=== PATIENT | male | born 1960 | race African-American/Black ===

== ENCOUNTER 2018-04-26 10:06 | Outpatient (CLI) | payer MEDICARE, MEDICAID ==
--- NOTE | 2018-04-26 11:35 | CT ---
CT OF THE CHEST WITHOUT CONTRAST: History: 30 pack-year smoking history. Patient quit smoking one year ago. Lung cancer screening. Technique: Multiple contiguous axial images were obtained in a CT of the chest without contrast. Low dose cancer screening protocol. Coronal reformats were performed. FINDINGS: No suspicious pulmonary nodules are identified. There is a calcified granuloma in the right upper lob e. No infiltrates are seen. No pneumothorax or pleural effusion are seen. The heart is normal in size without focal cardiac abnormality. Calcifications are seen in the coronar y arteries and aorta. No hilar or mediastinal lymph adenopathy are appreciated on this limited noncon trast CT examination. There are calcified right hilar lymph nodes. IMPRESSION: Lung rads category 2 - benign findings. POS: JULISA
== END 2018-04-26 10:07 | disposition home or self-care (01) ==
LOC: CT 10:06
PROVIDERS: ATTEND Family Medicine
DX: Z87.891 Personal history of nicotine dependence (principal)
CPT/HCPCS: G0297

== ENCOUNTER 2019-01-24 09:57 | Day surgery (SDC) | payer MEDICARE, MEDICAID ==
[2019-01-23 08:37] VITALS: BMI 28.6
[2019-01-24] MEDS ORDERED: Lidocaine 1% w/Epinephrine 1:100K 20 ML VIAL ONE (10:07)
[2019-01-24] MEDS ORDERED: Oxymetazoline HCl 0.05% ( 15 ML ) ONE (10:32)
[2019-01-24] MEDS ORDERED: Bacitracin Zinc Ointment 30 gm TUBE ONE (11:07)
[2019-01-24] MEDS ORDERED: EPINEPHrine 1 MG/ML AMP ONE (11:08)
[2019-01-24] MEDS ORDERED: Sodium Chloride 0.9% 0 ML ONE (11:08)
[2019-01-24] MEDS ORDERED: Fentanyl 100 MCG/2 ML VIAL ONE ×3 (11:15→12:14)
[2019-01-24] MEDS ORDERED: Glycopyrrolate 0.2 MG/ML 5 ML SYRINGE ONE (12:20)
[2019-01-24] MEDS ORDERED: Ondansetron PF 4 MG/2 ML Vial ONE (12:20)
[2019-01-24] MEDS ORDERED: Dexamethasone 20 MG/5 ML VIAL ONE (12:20)
[2019-01-24] MEDS ORDERED: Lidocaine 1% PF 5 ML VIAL ONE (12:20)
[2019-01-24] MEDS ORDERED: PHENYLEPHRINE-NS 100 MCG/ML 10 ML SYRINGE ONE (12:20)
[2019-01-24] MEDS ORDERED: ePHEDrine 50 MG/ML VIAL ONE (12:20)
[2019-01-24] MEDS ORDERED: PROPOFOL 200 MG/20 ML VIAL ONE (12:20)
[2019-01-24] MEDS ORDERED: Rocuronium Bromide 10 MG/ML (10ML VIAL) ONE (12:20)
[2019-01-24] MEDS ORDERED: Morphine 4 MG/ML VIAL ONE (12:24)
[2019-01-24] MEDS ORDERED: HYDROcodone/Acetaminophen 5/325 mg Tablet ONE (13:08)
[2019-01-24] MEDS ORDERED: hydrALAZINE 20 MG/ML VIAL ONE (14:55)
[2019-01-24] MEDS ORDERED: Morphine 2 MG/ML SYRINGE ONE (15:08)
--- NOTE | 2019-01-24 15:54 | OP ---
DATE OF PROCEDURE: 01/24/2019 PREOPERATIVE DIAGNOSES: 1. Profound septal deformity. 2. Hypertrophic inferior turbinates. POSTOPERATIVE DIAGNOSES: 1. Profound septal deformity. 2. Hypertrophic inferior turbinates. PROCEDURES PERFORMED: 1. Septoplasty. 2. Bilateral nasal endoscopy with submucosal resection of inferior turbinates. PROCEDURE IN DETAIL: SEPTOPLASTY: After local anesthesia was infiltrated into the submucoperichondrial plane, a standard Mccloud incision was made with a #15 blade down to the level of the septal cartilage. The caudal elevator was used to elevate the mucoperichondrium from the underlying cartilage. We then proceeded beyond the bony cartilaginous junction and elevated the bony periosteum as well. Great attention was paid to the spur to prevent rent formation in the septal flap. A transcartilaginous incision was then made, while preserving an adequate dorsal and caudal cartilaginous strut for tip support. The deformed cartilage was removed and disarticulated from the bony cartilaginous junction and maxillary crest. This was placed in saline and would later be crushed and returned to the mucoperichondrial envelope. We then elevated the contralateral periosteum from the bony cartilaginous region and removed the deformed portions of the bone and bony spurs. The cartilage was then crushed and placed back into the mucoperichondrial envelope and the mucosa was re-approximated with a quilting stitch composed of rapidly absorbent gut suture. The Mccloud incision was also closed with interrupted gut suture. At the completion of the case, Mandel splints were placed and suture secured to the caudal septum. BILATERAL NASAL ENDOSCOPY WITH SUBMUCOSAL RESECTION OF INFERIOR TURBINATES: After consent was obtained, the patient was identified, brought to the operating room, and placed on the operating room table in the supine position. Consent was obtained, notifying the patient of the possibility of additional infections, bleeding, brain injury, and eye/orbital injury. The patient was placed on the operating room table, and general endotracheal anesthesia and intravenous access was obtained. The patient was then positioned, prepped and draped for endoscopic sinus surgery. Nasal preparation included trimming nasal vestibular hairs and spraying in topical Afrin. We then placed Afrin topical solution on nasal pledgets and strategically located them intranasally. The perinasal mucosa was injected with 1% lidocaine with 1:100,000 epinephrine in the submucoperichondrial plane of the septum, lateral nasal wall, and anterior to the uncinate. The patient was then prepped and draped in a sterile fashion and positioned for endoscopic sinus surgery. With the 0-degree endoscope, the patient underwent systematic nasal endoscopy. There were no suspicious internasal masses or lesions identified. We then focused our attention to the osteomeatal complex region under the middle turbinate. The inferior turbinates were visualized with a 0 degree endoscope and outfractured with a Bristol elevator. The inferior medial aspect was cauterized with the electrocautery. Hemostasis was obtained . After adequate airway was established, we turned our attention to the contralateral side and used a similar procedure. Again, a Bristol elevator was used to outfracture inferior turbinates under endoscopic visualization. With a suction cautery, the free inferior medial aspect was cauterized under direct visualization along the length of the inferior turbinate. At this point, we then turned our attention to the contralateral side and proceeded with endoscopic sinus surgery. At the completion of the case, Rice keel splints were placed in the ethmoid cavities after the ethmoidectomy. There were no complications. The patient tolerated the procedure well and was discharged to the recovery room in stable condition prior to return to the preoperative day stay with ultimate discharge home. Prescriptions for pain medication and antibiotics were provided. The patient received intramuscular Depo-Medrol during the case. Job ID: [id number]
--- NOTE | 2019-01-24 21:26 | EKG ---
Test Reason : PREOP Blood Pressure : / mmHG Vent. Rate : 069 BPM Atrial Rate : 069 BPM P-R Int : 166 ms QRS Dur : 092 ms QT Int : 426 ms P-R-T Axes : 069 027 049 degrees QTc Int : 456 ms Normal sinus rhythm Right atrial enlargement Borderline ECG When compared with ECG of 13-DEC-2011 15:13, No significant change was found Confirmed by DIONICIO GUNN, SCristel ([id number]) on 01/24/2019 9:25:59 PM Referred By: RAULITO Confirmed By:DR. Javier GREENBERG MD
== END 2019-01-24 16:15 | disposition home or self-care (01) ==
LOC: SDC 09:57
PROVIDERS: ATTEND Specialist
PROC: 09SM0ZZ Reposition Nasal Septum, Open Approach (ICD-10-PCS; principal; 2019-01-24)
PROC: 09SL7ZZ Reposition Nasal Turbinate, Via Natural or Artificial Opening (ICD-10-PCS; 2019-01-24)
DX: J34.2 Deviated nasal septum (principal); J34.3 Hypertrophy of nasal turbinates; I10 Essential (primary) hypertension; E78.5 Hyperlipidemia, unspecified; F32.9 Major depressive disorder, single episode, unspecified; I73.9 Peripheral vascular disease, unspecified; Z87.891 Personal history of nicotine dependence; Z86.73 Personal history of transient ischemic attack (TIA), and cerebral infarction without residual deficits; Z79.82 Long term (current) use of aspirin; Z79.899 Other long term (current) drug therapy; Z88.8 Allergy status to other drugs, medicaments and biological substances
CPT/HCPCS: 93005; 93010; J0171; J0360; J1100; J2001; J2270; J2405; J2704; J3010; J3490

== ENCOUNTER 2023-05-02 12:16 | Outpatient (CLI) | payer OTHER | END 2023-05-02 12:17 | disposition home or self-care (01) | LOC: ULT 12:16 | PROVIDERS: ATTEND Family Medicine | DX: I65.23 Occlusion and stenosis of bilateral carotid arteries (principal) | CPT/HCPCS: 93880 ==

== ENCOUNTER 2025-04-28 09:30 | Inpatient (IN) | payer OTHER, MEDICAID ==
[2025-04-28 11:37] LABS: #Basophils 0.03 10x3/uL (0.0-0.2); #Eosinophils 0.56 10x3/uL (0.0-0.7); #Monocytes 1.03 10x3/uL (0.11-0.59); #Neutrophils 7.26 10x3/uL (1.40-6.50); %Basophils 0.3 % (0.0-1.0); %Eosinophils 5.4 % (0.0-10.0); %Lymphocytes 14.8 % (21.0-51.0); %Monocytes 9.9 % (0.0-10.0); %Neutrophils 69.4 % (42.0-75.0); Hematocrit 40.0 % (42.0-52.0); Hemoglobin 12.8 g/dL (14.0-18.0); Mean Corpuscular Hemoglobin 23.0 pg (27.0-31.0); Mean Corpuscular Volume 71.8 fL (78.0-98.0); Platelet Count 196 10x3/uL (130-400); Red Blood Cell (RBC) Count 5.57 mill/uL (4.70-6.10); White Blood Cell (WBC) Count 10.44 10x3/uL (4.8-10.8)
[2025-04-28 11:49] LABS: Anion Gap 16 mmol/L (10-20); BUN (Urea Nitrogen) 18 mg/dL (8.4-25.7); Calc. Creatinine Clearance 0 mL/min (70-130); Calcium 9.7 mg/dL (7.8-10.44); Carbon Dioxide 23 mmol/L (23-31); Chloride 106 mmol/L (98-107); Glucose 100 mg/dL (80-115); Potassium 3.5 mmol/L (3.5-5.1); Sodium 141 mmol/L (136-145)
[2025-04-29] MEDS ORDERED: PHENYLEPHRINE-NS 100 MCG/ML 10 ML SYRINGE ONE (06:20)
[2025-04-29] MEDS ORDERED: Heparin 10,000 UNITS/1 ML VIAL 30,000 UNITS in Sodium Chloride 0.9% 1,000 ML FS SCH (06:30)
[2025-04-29] MEDS ORDERED: PROPOFOL 20 ML ONE (07:08)
[2025-04-29] MEDS ORDERED: CEFAZOLIN 2 GM VIAL ONE (07:11)
[2025-04-29] MEDS ORDERED: Lidocaine 1% PF 5 ML VIAL ONE (07:45)
[2025-04-29] MEDS ORDERED: Heparin 5,000 UNITS/ML VIAL ONE (07:45)
[2025-04-29] MEDS ORDERED: Cardioplegic Soln 1,000 ML BAG ONE (07:45)
[2025-04-29] MEDS ORDERED: Calcium Chloride 1 GM/10 ML Abboject SYRINGE ONE (07:45)
[2025-04-29] MEDS ORDERED: Heparin 30,000 units/30 ml VIAL ONE (07:45)
[2025-04-29] MEDS ORDERED: Thrombin 5000 UNITS/5 ML VIAL ONE (07:45)
[2025-04-29] MEDS ORDERED: Bisacodyl 10 MG SUPP PR PRN (11:09)
[2025-04-29] MEDS ORDERED: Mag-Al 1200 mg/1200 mg/30 ML UDCUP PO PRN (11:09)
[2025-04-29] MEDS ORDERED: Nitroglycerin 50 MG/250 ML BOT 250 ML IVPB PRN (11:09)
[2025-04-29] MEDS ORDERED: Albumin 5% 12.5 GM (250 mL) BOT IVPB PRN ×2 (11:09)
[2025-04-29] MEDS ORDERED: Hetastarch 6% 500 ML 500 ML IVPB PRN (11:09)
[2025-04-29] MEDS ORDERED: NOREPINEPHRINE 8 MG/250 ML-D5W 250 ML IVPB PRN (11:09)
[2025-04-29] MEDS ORDERED: Guaifenesin DM 100-10/5 ML UDCUP PO PRN (11:09)
[2025-04-29] MEDS ORDERED: hydrALAZINE 20 MG/ML VIAL SLOW IVP PRN (11:09)
[2025-04-29] MEDS ORDERED: Dextrose 50% Abboject 50 ML SYRINGE SLOW IVP PRN (11:30)
[2025-04-29] MEDS ORDERED: Glucagon 1 MG/ML KIT SC PRN (11:30)
[2025-04-29 11:36] LABS: Actual Bicarbonate (HCO3a) 21.2 mEq/L (22-28); Base Excess (BEa) -3.7 mEq/L (-2.0 to +3.0); CO2 Tension 37.9 mmHg (35.0-45.0); Calcium, Ionized (arterial) 1.11 mmol/L (1.12-1.30); Hematocrit-ABG 33 % (42.0-52.0); Hemoglobin (Hb) 11.2 g/dL (14.0-18.0); O2 Tension (PaO2), arterial 112.0 mmHg (> 80.0); Potassium - ABG Lab 3.57 mmol/L (3.70-5.30); pH, Arterial 7.366 (7.35-7.45)
[2025-04-29 11:37] LABS: ALV-art Gradient 268.425 mmHg (0-20); Puncture Site Arterial Line
[2025-04-29] MEDS: D5 1/2 NS w/20 mEq KCL 1,000 ML IV SCH (11:51)
[2025-04-29] MEDS: Magnesium 2 GM/50 ML(in water) 2 GM in Premix 1 BAG IVPB SCH (11:51)
[2025-04-29 11:53] VITALS: BMI 29.0
[2025-04-29 11:54] LABS: INR-International Normal Ratio 1.3; Prothrombin Time 16.6 sec (12.0-14.7)
[2025-04-29 11:55] LABS: PTT 29.7 sec (22.9-36.1)
[2025-04-29 11:55] LABS: #Basophils 0.03 10x3/uL (0.0-0.2); #Eosinophils 0.27 10x3/uL (0.0-0.7); #Monocytes 1.04 10x3/uL (0.11-0.59); #Neutrophils 15.71 10x3/uL (1.40-6.50); %Basophils 0.2 % (0.0-1.0); %Eosinophils 1.4 % (0.0-10.0); %Lymphocytes 8.7 % (21.0-51.0); %Monocytes 5.5 % (0.0-10.0); %Neutrophils 83.0 % (42.0-75.0); Hematocrit 31.2 % (42.0-52.0); Hemoglobin 10.1 g/dL (14.0-18.0); Mean Corpuscular Hemoglobin 23.7 pg (27.0-31.0); Mean Corpuscular Volume 73.1 fL (78.0-98.0); Platelet Count 131 10x3/uL (130-400); Red Blood Cell (RBC) Count 4.27 mill/uL (4.70-6.10); White Blood Cell (WBC) Count 18.91 10x3/uL (4.8-10.8)
[2025-04-29 12:27] LABS: Burr Cells SLIGHT = 2-5 cells HPF (0-1); Microcytosis SLIGHT = 6-15 cells HPF (0-5); Platelet Adequacy Comment Platelets Normal; Poikilocytosis SLIGHT = 6-15 cells HPF (0-5)
[2025-04-29 12:32] LABS: Anion Gap 13 mmol/L (10-20); BUN (Urea Nitrogen) 13 mg/dL (8.4-25.7); Calc. Creatinine Clearance 104 mL/min (70-130); Calcium 7.7 mg/dL (7.8-10.44); Carbon Dioxide 21 mmol/L (23-31); Chloride 111 mmol/L (98-107); Glucose 188 mg/dL (80-115); Potassium 3.6 mmol/L (3.5-5.1); Sodium 141 mmol/L (136-145)
[2025-04-29] MEDS: Potassium Chloride 20 MEQ (100 mL) BAG IVPB PRN (12:34)
[2025-04-29 14:40] LABS: Actual Bicarbonate (HCO3a) 20.6 mEq/L (22-28); Base Excess (BEa) -3.1 mEq/L (-2.0 to +3.0); CO2 Tension 32.6 mmHg (35.0-45.0); Calcium, Ionized (arterial) 1.12 mmol/L (1.12-1.30); Hematocrit-ABG 36 % (42.0-52.0); Hemoglobin (Hb) 12.1 g/dL (14.0-18.0); O2 Tension (PaO2), arterial 78.7 mmHg (> 80.0); Potassium - ABG Lab 3.98 mmol/L (3.70-5.30); pH, Arterial 7.419 (7.35-7.45)
[2025-04-29 14:43] LABS: ALV-art Gradient 165.750 mmHg (0-20); Puncture Site Arterial Line
[2025-04-29 17:42] LABS: Hematocrit 35.5 % (42.0-52.0); Hemoglobin 11.4 g/dL (14.0-18.0)
[2025-04-29 18:01] LABS: Potassium 3.7 mmol/L (3.5-5.1)
[2025-04-29] MEDS: Famotidine/PF 20 mg/2ml Vial SLOW IVP SCH (20:40)
[2025-04-30 04:40] LABS: #Basophils Less than 0.03 10x3/uL (0.0-0.2); #Eosinophils Less than 0.03 10x3/uL (0.0-0.7); #Monocytes 1.65 10x3/uL (0.11-0.59); #Neutrophils 12.24 10x3/uL (1.40-6.50); %Basophils 0.1 % (0.0-1.0); %Eosinophils 0.1 % (0.0-10.0); %Lymphocytes 9.5 % (21.0-51.0); %Monocytes 10.7 % (0.0-10.0); %Neutrophils 79.3 % (42.0-75.0); Hematocrit 33.3 % (42.0-52.0); Hemoglobin 10.8 g/dL (14.0-18.0); Mean Corpuscular Hemoglobin 23.6 pg (27.0-31.0); Mean Corpuscular Volume 72.9 fL (78.0-98.0); Platelet Count 173 10x3/uL (130-400); Red Blood Cell (RBC) Count 4.57 mill/uL (4.70-6.10); White Blood Cell (WBC) Count 15.44 10x3/uL (4.8-10.8)
[2025-04-30 04:56] LABS: Anion Gap 10 mmol/L (10-20); BUN (Urea Nitrogen) 10 mg/dL (8.4-25.7); Calc. Creatinine Clearance 111 mL/min (70-130); Calcium 8.2 mg/dL (7.8-10.44); Carbon Dioxide 24 mmol/L (23-31); Chloride 106 mmol/L (98-107); Glucose 122 mg/dL (80-115); Potassium 3.3 mmol/L (3.5-5.1); Sodium 137 mmol/L (136-145)
[2025-04-30] MEDS: Ondansetron PF 4 MG/2 ML Vial IVP PRN (05:51)
[2025-04-30] MEDS ORDERED: Milk Of Magnesia 30 ML UDCUP PO PRN (06:59)
[2025-04-30] MEDS ORDERED: Mineral Oil ENEMA PR PRN (06:59)
[2025-04-30] MEDS ORDERED: Bisacodyl 10 MG SUPP PR PRN (06:59)
[2025-04-30] MEDS ORDERED: Artificial Tear Ophth Sol 15 ML BOT EA EYE PRN (06:59)
[2025-04-30] MEDS ORDERED: Mag-Al 1200 mg/1200 mg/30 ML UDCUP PO PRN (06:59)
[2025-04-30] MEDS ORDERED: Nitroglycerin 0.4 MG TAB (25 Tab Bottle) SL PRN (06:59)
[2025-04-30] MEDS: Magnesium 2 GM/50 ML(in water) 2 GM in Premix 1 BAG IVPB SCH (08:33)
[2025-04-30] MEDS: Pantoprazole 40 MG DR.TAB PO SCH (08:33)
[2025-04-30] MEDS ORDERED: Aspirin 325 MG TAB PO SCH (09:00)
[2025-04-30] MEDS: Metoclopramide HCl 10 MG (2 mL) VIAL IVP PRN (09:58)
[2025-04-30] MEDS: Gabapentin 300 MG CAP PO SCH (14:29)
[2025-04-30 19:10] LABS: Potassium 3.4 mmol/L (3.5-5.1)
[2025-04-30] MEDS: diphenhydrAMINE 25 MG CAP PO PRN (20:36)
[2025-05-01 01:34] LABS: Anion Gap 12 mmol/L (10-20); BUN (Urea Nitrogen) 16 mg/dL (8.4-25.7); Calc. Creatinine Clearance 76 mL/min (70-130); Calcium 8.2 mg/dL (7.8-10.44); Carbon Dioxide 24 mmol/L (23-31); Chloride 104 mmol/L (98-107); Glucose 117 mg/dL (80-115); Potassium 4.0 mmol/L (3.5-5.1); Sodium 136 mmol/L (136-145)
[2025-05-01] MEDS: Furosemide 40 MG TAB PO SCH (09:45)
[2025-05-02] MEDS: Furosemide 40 MG TAB PO SCH (08:00)
[2025-05-02] MEDS: Metoclopramide HCl 10 MG (2 mL) VIAL IVP PRN (08:16)
[2025-05-02] MEDS: Mupirocin 1 GM TUBE NASAL DECOLONIZATION NASAL SCH (20:49)
[2025-05-03] MEDS: metFORMIN XR 500 MG ER.TAB PO SCH (09:59)
[2025-05-03] MEDS: Senokot S 8.6-50 MG TAB PO SCH (20:36)
[2025-05-04] MEDS: Guaifenesin DM 100-10/5 ML UDCUP PO PRN (08:21)
[2025-05-04] MEDS: Carvedilol 25 MG TAB PO SCH (10:51)
[2025-05-07] MEDS: Acetaminophen 325 MG TAB PO PRN (21:27)
[2025-05-08 01:18] LABS: Hematocrit 28.4 % (42.0-52.0); Hemoglobin 9.1 g/dL (14.0-18.0); Mean Corpuscular Hemoglobin 23.4 pg (27.0-31.0); Mean Corpuscular Volume 73.0 fL (78.0-98.0); Platelet Count 411 10x3/uL (130-400); Red Blood Cell (RBC) Count 3.89 mill/uL (4.70-6.10); White Blood Cell (WBC) Count 24.05 10x3/uL (4.8-10.8)
[2025-05-08] MEDS: Albumin 25% 25 GM (100 mL) BOT IVPB SCH ×2 (01:29→05:18)
[2025-05-08 01:40] LABS: ALT (SGPT) 74 U/L (Less than 45); AST (SGOT) 64 U/L (11-34); Albumin 2.7 g/dL (3.1-4.5); Alkaline Phosphatase 141 U/L (40-110); Anion Gap 18 mmol/L (10-20); BUN (Urea Nitrogen) 45 mg/dL (8.4-25.7); Bilirubin, Total 1.0 mg/dL (0.3-1.2); Calc. Creatinine Clearance 35 mL/min (70-130); Calcium 8.5 mg/dL (7.8-10.44); Carbon Dioxide 23 mmol/L (23-31); Chloride 97 mmol/L (98-107); Globulin 3.6 g/dL (2.4-3.5); Glucose 137 mg/dL (80-115); Magnesium 2.7 mg/dL (1.6-2.6); Potassium 3.6 mmol/L (3.5-5.1); Sodium 134 mmol/L (136-145)
[2025-05-08 01:49] LABS: Microcytosis SLIGHT = 6-15 cells HPF (0-5); Platelet Adequacy Comment Platelets Normal; Polychromasia SLIGHT = 2-3 cells HPF (0-2); Smudge Cells 3.0 %
[2025-05-08] MEDS: Potassium Chloride 40 MEQ in Premix 1 BAG IVPB ONE (02:49)
[2025-05-08] MEDS: Lidocaine 1% (PF) 30 ML VIAL FS SCH (03:01)
[2025-05-08] MEDS: Lidocaine 1% (PF) 30 ML VIAL ONE (03:01)
[2025-05-08] MEDS: NOREPINEPHRINE 8 MG/250 ML-D5W 250 ML ONE (03:42)
[2025-05-08] MEDS: NOREPINEPHRINE 8 MG/250 ML-D5W 250 ML IVPB SCH (03:42)
[2025-05-08] MEDS: Albumin 5% 25 GM (500 mL) BOT IVPB SCH (16:22)
[2025-05-09 04:25] LABS: #Basophils 0.03 10x3/uL (0.0-0.2); #Eosinophils 0.39 10x3/uL (0.0-0.7); #Monocytes 1.88 10x3/uL (0.11-0.59); #Neutrophils 10.61 10x3/uL (1.40-6.50); %Basophils 0.2 % (0.0-1.0); %Eosinophils 2.6 % (0.0-10.0); %Lymphocytes 10.6 % (21.0-51.0); %Monocytes 12.8 % (0.0-10.0); %Neutrophils 72.1 % (42.0-75.0); Hematocrit 24.5 % (42.0-52.0); Hemoglobin 8.1 g/dL (14.0-18.0); Mean Corpuscular Hemoglobin 24.0 pg (27.0-31.0); Mean Corpuscular Volume 72.5 fL (78.0-98.0); Platelet Count 321 10x3/uL (130-400); Red Blood Cell (RBC) Count 3.38 mill/uL (4.70-6.10); White Blood Cell (WBC) Count 14.72 10x3/uL (4.8-10.8)
[2025-05-09 04:28] LABS: Anion Gap 14 mmol/L (10-20); BUN (Urea Nitrogen) 47 mg/dL (8.4-25.7); Calc. Creatinine Clearance 45 mL/min (70-130); Calcium 8.3 mg/dL (7.8-10.44); Carbon Dioxide 23 mmol/L (23-31); Chloride 101 mmol/L (98-107); Glucose 137 mg/dL (80-115); Potassium 3.1 mmol/L (3.5-5.1); Sodium 135 mmol/L (136-145)
[2025-05-09] MEDS ORDERED: Furosemide 40 MG TAB PO SCH (07:30)
[2025-05-10] MEDS: Furosemide 40 MG (4 mL) VIAL SLOW IVP SCH (00:57)
[2025-05-10 06:03] LABS: Anion Gap 15 mmol/L (10-20); BUN (Urea Nitrogen) 42 mg/dL (8.4-25.7); Calc. Creatinine Clearance 57 mL/min (70-130); Calcium 8.4 mg/dL (7.8-10.44); Carbon Dioxide 22 mmol/L (23-31); Chloride 104 mmol/L (98-107); Glucose 109 mg/dL (80-115); Potassium 3.2 mmol/L (3.5-5.1); Sodium 138 mmol/L (136-145)
[2025-05-10] MEDS ORDERED: fentaNYL PF 100 MCG/2 ML SYRINGE ONE (08:02)
[2025-05-10] MEDS ORDERED: PROPOFOL 20 ML ONE (08:02)
[2025-05-10] MEDS ORDERED: Etomidate 40 MG (20 mL) VIAL ONE (08:07)
[2025-05-10] MEDS ORDERED: Rocuronium Bromide 10 MG/ML (10ML VIAL) ONE (08:07)
[2025-05-10] MEDS ORDERED: Lidocaine 1% PF 5 ML VIAL ONE (08:07)
[2025-05-10] MEDS ORDERED: CEFAZOLIN 1 GM VIAL ONE (08:22)
[2025-05-10] MEDS ORDERED: Fentanyl BOLUS 100 ML IVPB PRN ×2 (08:45→09:45)
[2025-05-10] MEDS ORDERED: Propofol BOLUS 1,000 MG/100 ML VIAL IV PRN ×2 (08:45→09:45)
[2025-05-10] MEDS ORDERED: DISCONTINUE PREVIOUS NARCOTIC PAIN MEDICATIONS AND BENZODIAZEPINES FS SCH ×2 (08:45→09:45)
[2025-05-10] MEDS ORDERED: Ventilator Sedation Protocol 1 EACH FS SCH (09:23)
[2025-05-10] MEDS ORDERED: PHENYLEPHRINE-NS 100 MCG/ML 10 ML SYRINGE ONE (09:28)
[2025-05-10 10:02] LABS: #Basophils 0.04 10x3/uL (0.0-0.2); #Eosinophils 0.28 10x3/uL (0.0-0.7); #Monocytes 2.24 10x3/uL (0.11-0.59); #Neutrophils 12.51 10x3/uL (1.40-6.50); %Basophils 0.2 % (0.0-1.0); %Eosinophils 1.6 % (0.0-10.0); %Lymphocytes 10.4 % (21.0-51.0); %Monocytes 13.0 % (0.0-10.0); %Neutrophils 72.8 % (42.0-75.0); Hematocrit 28.3 % (42.0-52.0); Hemoglobin 9.3 g/dL (14.0-18.0); Mean Corpuscular Hemoglobin 24.4 pg (27.0-31.0); Mean Corpuscular Volume 74.3 fL (78.0-98.0); Platelet Count 383 10x3/uL (130-400); Red Blood Cell (RBC) Count 3.81 mill/uL (4.70-6.10); White Blood Cell (WBC) Count 17.20 10x3/uL (4.8-10.8)
[2025-05-10 10:21] LABS: Anion Gap 14 mmol/L (10-20); BUN (Urea Nitrogen) 41 mg/dL (8.4-25.7); Calc. Creatinine Clearance 60 mL/min (70-130); Calcium 8.2 mg/dL (7.8-10.44); Carbon Dioxide 23 mmol/L (23-31); Chloride 103 mmol/L (98-107); Glucose 156 mg/dL (80-115); Potassium 3.2 mmol/L (3.5-5.1); Sodium 137 mmol/L (136-145)
[2025-05-10 21:01] LABS: Potassium 3.4 mmol/L (3.5-5.1)
[2025-05-10 21:03] LABS: Critical Call Chemistry CCU.AO
[2025-05-11 02:57] LABS: Potassium 3.4 mmol/L (3.5-5.1)
[2025-05-11 10:33] LABS: Potassium 3.3 mmol/L (3.5-5.1)
[2025-05-12 04:47] LABS: #Basophils 0.06 10x3/uL (0.0-0.2); #Eosinophils 0.39 10x3/uL (0.0-0.7); #Monocytes 2.47 10x3/uL (0.11-0.59); #Neutrophils 15.54 10x3/uL (1.40-6.50); %Basophils 0.3 % (0.0-1.0); %Eosinophils 1.9 % (0.0-10.0); %Lymphocytes 9.6 % (21.0-51.0); %Monocytes 12.0 % (0.0-10.0); %Neutrophils 75.2 % (42.0-75.0); Hematocrit 27.9 % (42.0-52.0); Hemoglobin 9.0 g/dL (14.0-18.0); Mean Corpuscular Hemoglobin 24.1 pg (27.0-31.0); Mean Corpuscular Volume 74.6 fL (78.0-98.0); Platelet Count 376 10x3/uL (130-400); Red Blood Cell (RBC) Count 3.74 mill/uL (4.70-6.10); White Blood Cell (WBC) Count 20.65 10x3/uL (4.8-10.8)
[2025-05-12 05:01] LABS: Anion Gap 12 mmol/L (10-20); BUN (Urea Nitrogen) 14 mg/dL (8.4-25.7); Calc. Creatinine Clearance 99 mL/min (70-130); Calcium 8.6 mg/dL (7.8-10.44); Carbon Dioxide 27 mmol/L (23-31); Chloride 104 mmol/L (98-107); Glucose 105 mg/dL (80-115); Potassium 3.6 mmol/L (3.5-5.1); Sodium 139 mmol/L (136-145)
[2025-05-13 04:24] LABS: #Basophils 0.05 10x3/uL (0.0-0.2); #Eosinophils 0.47 10x3/uL (0.0-0.7); #Monocytes 1.84 10x3/uL (0.11-0.59); #Neutrophils 13.07 10x3/uL (1.40-6.50); %Basophils 0.3 % (0.0-1.0); %Eosinophils 2.7 % (0.0-10.0); %Lymphocytes 9.9 % (21.0-51.0); %Monocytes 10.6 % (0.0-10.0); %Neutrophils 75.5 % (42.0-75.0); Hematocrit 25.4 % (42.0-52.0); Hemoglobin 8.1 g/dL (14.0-18.0); Mean Corpuscular Hemoglobin 24.0 pg (27.0-31.0); Mean Corpuscular Volume 75.1 fL (78.0-98.0); Platelet Count 339 10x3/uL (130-400); Red Blood Cell (RBC) Count 3.38 mill/uL (4.70-6.10); White Blood Cell (WBC) Count 17.32 10x3/uL (4.8-10.8)
[2025-05-13 04:36] LABS: Anion Gap 15 mmol/L (10-20); BUN (Urea Nitrogen) 14 mg/dL (8.4-25.7); Calc. Creatinine Clearance 83 mL/min (70-130); Calcium 8.3 mg/dL (7.8-10.44); Carbon Dioxide 25 mmol/L (23-31); Chloride 104 mmol/L (98-107); Glucose 129 mg/dL (80-115); Potassium 3.6 mmol/L (3.5-5.1); Sodium 140 mmol/L (136-145)
[2025-05-14 04:17] LABS: #Basophils 0.04 10x3/uL (0.0-0.2); #Eosinophils 0.44 10x3/uL (0.0-0.7); #Monocytes 1.63 10x3/uL (0.11-0.59); #Neutrophils 9.47 10x3/uL (1.40-6.50); %Basophils 0.3 % (0.0-1.0); %Eosinophils 3.2 % (0.0-10.0); %Lymphocytes 13.7 % (21.0-51.0); %Monocytes 12.0 % (0.0-10.0); %Neutrophils 70.0 % (42.0-75.0); Hematocrit 26.6 % (42.0-52.0); Hemoglobin 8.3 g/dL (14.0-18.0); Mean Corpuscular Hemoglobin 23.6 pg (27.0-31.0); Mean Corpuscular Volume 75.6 fL (78.0-98.0); Platelet Count 357 10x3/uL (130-400); Red Blood Cell (RBC) Count 3.52 mill/uL (4.70-6.10); White Blood Cell (WBC) Count 13.55 10x3/uL (4.8-10.8)
[2025-05-14 04:36] LABS: Anion Gap 12 mmol/L (10-20); BUN (Urea Nitrogen) 9 mg/dL (8.4-25.7); Calc. Creatinine Clearance 104 mL/min (70-130); Calcium 8.4 mg/dL (7.8-10.44); Carbon Dioxide 27 mmol/L (23-31); Chloride 103 mmol/L (98-107); Glucose 98 mg/dL (80-115); Potassium 3.7 mmol/L (3.5-5.1); Sodium 138 mmol/L (136-145)
[2025-05-15 04:26] LABS: Anion Gap 12 mmol/L (10-20); BUN (Urea Nitrogen) 7 mg/dL (8.4-25.7); Calc. Creatinine Clearance 108 mL/min (70-130); Calcium 8.9 mg/dL (7.8-10.44); Carbon Dioxide 25 mmol/L (23-31); Chloride 103 mmol/L (98-107); Glucose 105 mg/dL (80-115); Potassium 3.6 mmol/L (3.5-5.1); Sodium 136 mmol/L (136-145)
[2025-05-15 04:47] LABS: #Basophils Less than 0.03 10x3/uL (0.0-0.2); #Eosinophils 0.28 10x3/uL (0.0-0.7); #Monocytes 1.42 10x3/uL (0.11-0.59); #Neutrophils 10.22 10x3/uL (1.40-6.50); %Basophils 0.1 % (0.0-1.0); %Eosinophils 2.1 % (0.0-10.0); %Lymphocytes 10.6 % (21.0-51.0); %Monocytes 10.6 % (0.0-10.0); %Neutrophils 76.0 % (42.0-75.0); Hematocrit 26.4 % (42.0-52.0); Hemoglobin 8.5 g/dL (14.0-18.0); Mean Corpuscular Hemoglobin 24.0 pg (27.0-31.0); Mean Corpuscular Volume 74.6 fL (78.0-98.0); Platelet Count 365 10x3/uL (130-400); Red Blood Cell (RBC) Count 3.54 mill/uL (4.70-6.10); White Blood Cell (WBC) Count 13.44 10x3/uL (4.8-10.8)
[2025-05-15] MEDS: Sulfameth/Trimethoprim DS 800-160mg TAB PO SCH (10:09)
[2025-05-16 04:16] LABS: Hematocrit 27.8 % (42.0-52.0); Hemoglobin 8.8 g/dL (14.0-18.0); Mean Corpuscular Hemoglobin 23.7 pg (27.0-31.0); Mean Corpuscular Volume 74.9 fL (78.0-98.0); Platelet Count 401 10x3/uL (130-400); Red Blood Cell (RBC) Count 3.71 mill/uL (4.70-6.10); White Blood Cell (WBC) Count 11.01 10x3/uL (4.8-10.8)
[2025-05-16 04:43] LABS: Anion Gap 15 mmol/L (10-20); BUN (Urea Nitrogen) 6 mg/dL (8.4-25.7); Calc. Creatinine Clearance 99 mL/min (70-130); Calcium 8.8 mg/dL (7.8-10.44); Carbon Dioxide 22 mmol/L (23-31); Chloride 107 mmol/L (98-107); Glucose 136 mg/dL (80-115); Potassium 3.5 mmol/L (3.5-5.1); Sodium 140 mmol/L (136-145)
[2025-05-16 06:24] LABS: Anisocytosis SLIGHT = 6-15 cells HPF (0-5); Macrocytosis SLIGHT = 6-15 cells HPF (0-5); Platelet Adequacy Comment Platelets Normal; Polychromasia MODERATE = 3-4 cells HPF (0-2); Smudge Cells 5.0 %
[2025-05-20 15:04] VITALS: BMI 25.9
[2025-05-20] MEDS: Carvedilol 6.25 MG TAB PO SCH (16:22)
[2025-05-21 11:13] VITALS: BP 125/78; TEMP 98.4
== END 2025-05-21 12:41 | disposition home or self-care (01) | DRG 235 ==
LOC: SURG A 04-29 05:50 → CCU 04-29 11:12 → PCU 05-01 01:19 → CCU 05-08 00:07 → PCU 05-14 15:23
PROVIDERS: ADMIT Thoracic Surgery (Cardiothoracic Vascular Surgery); ATTEND Thoracic Surgery (Cardiothoracic Vascular Surgery)
PROC: 02100Z9 Bypass Coronary Artery, One Artery from Left Internal Mammary, Open Approach (ICD-10-PCS; principal; 2025-04-29)
PROC: 021109W Bypass Coronary Artery, Two Arteries from Aorta with Autologous Venous Tissue, Open Approach (ICD-10-PCS; 2025-04-29)
PROC: 06BQ4ZZ Excision of Left Saphenous Vein, Percutaneous Endoscopic Approach (ICD-10-PCS; 2025-04-29)
PROC: 02L70CK Occlusion of Left Atrial Appendage with Extraluminal Device, Open Approach (ICD-10-PCS; 2025-04-29)
PROC: 5A1221Z Performance of Cardiac Output, Continuous (ICD-10-PCS; 2025-04-29)
PROC: 4A133R1 Monitoring of Arterial Saturation, Peripheral, Percutaneous Approach (ICD-10-PCS; 2025-04-29)
PROC: 3E033XZ Introduction of Vasopressor into Peripheral Vein, Percutaneous Approach (ICD-10-PCS; 2025-04-29)
PROC: 30233J1 Transfusion of Nonautologous Serum Albumin into Peripheral Vein, Percutaneous Approach (ICD-10-PCS; 2025-04-29)
PROC: 3E03329 Introduction of Other Anti-infective into Peripheral Vein, Percutaneous Approach (ICD-10-PCS; 2025-04-29)
PROC: 0W9B30Z Drainage of Left Pleural Cavity with Drainage Device, Percutaneous Approach (ICD-10-PCS; 2025-05-08)
PROC: 30233N1 Transfusion of Nonautologous Red Blood Cells into Peripheral Vein, Percutaneous Approach (ICD-10-PCS; 2025-05-09)
PROC: 5A09457 Assistance with Respiratory Ventilation, 24-96 Consecutive Hours, Continuous Positive Airway Pressure (ICD-10-PCS; 2025-05-09)
PROC: 0PQ00ZZ Repair Sternum, Open Approach (ICD-10-PCS; 2025-05-10)
DX: I25.10 Atherosclerotic heart disease of native coronary artery without angina pectoris (principal); J95.821 Acute postprocedural respiratory failure; N18.6 End stage renal disease; J90 Pleural effusion, not elsewhere classified; T81.31XA Disruption of external operation (surgical) wound, not elsewhere classified, initial encounter; N17.9 Acute kidney failure, unspecified; R57.9 Shock, unspecified; I12.0 Hypertensive chronic kidney disease with stage 5 chronic kidney disease or end stage renal disease; K92.2 Gastrointestinal hemorrhage, unspecified; D62 Acute posthemorrhagic anemia; I69.854 Hemiplegia and hemiparesis following other cerebrovascular disease affecting left non-dominant side; E11.22 Type 2 diabetes mellitus with diabetic chronic kidney disease; I48.91 Unspecified atrial fibrillation; E78.5 Hyperlipidemia, unspecified; Z79.899 Other long term (current) drug therapy; Z90.49 Acquired absence of other specified parts of digestive tract; Z98.890 Other specified postprocedural states; Z87.891 Personal history of nicotine dependence; Z88.8 Allergy status to other drugs, medicaments and biological substances; Z99.2 Dependence on renal dialysis
CPT/HCPCS: 36415; 36416; 36430; 71045; 71250; 80048; 80053; 82805; 83735; 83880; 84132; 85025; 85610; 85730; 86850; 86900; 86901; 93005; 93010; 93306; 93798; 94002; 94640; 94660; 97139; A4311; A4648; C1713; C1751; C1889; J0169; J0665; J0690; J1100; J1308; J1644; J1815; J1940; J2250; J2405; J2440; J2543; J2704; J2765; J3010; J3373; J3475; J3480; J7030; J7120; J7620; P9016; P9045; P9047; S0017